=== PATIENT | male | born 1990 | race Hispanic/Latino ===

== ENCOUNTER 2020-03-03 01:03 | Emergency (ER) | payer SELFPAY ==
[~2020-03-03] VITALS: Ht 170.2 cm; Wt 77.1 kg
--- OUTSIDE RECORDS SUMMARY | 2020-03-03 01:06 | XMS REPORT | Clinical Summary ---
Author Author [place] [facility] Address Unknown Phone Unavailable Care Team Providers Care Chief Green Officer Name Role Phone Pcp, No PCP Unavailable Allergies No Known Allergies Medications End Date Status Medication Sig Dispensed Refills Start Date Active albuterol (ACCUNEB) 1.25 Take 1 ampule 0 mg/3 mL nebulizer by solution nebulization every 6 (six) hours as needed for Wheezing. Active albuterol HFA (VENTOLIN Inhale 1 puff 0 HFA) 90 mcg/actuation by mouth via inhaler inhaler every 6 (six) hours as needed for Wheezing. 12/11/2019 fluticasone (FLONASE) 50 1 spray by 15 mL 0 0 mcg/actuation nasal spray Nasal route 9 daily. Active Problems Not on file Social History Date Tobacco Use Types Packs/Day Years Used Never Smoker Smokeless Tobacco: Never Used Alcohol Use Drinks/Week oz/Week Comments No Alcohol Habits Answer Date Recorded How often do you have a drink containing alcohol? Never 12/11/2018 How many drinks containing alcohol do you have on No t asked a typical day when you are drinking? How often do you have six or more drinks on one Not asked occasion? Sex Assigned at Date Recorded Not on file Industry Job Start Date Occupation Not on file Not on file Not on file Travel End Travel History Travel Start No recent travel history available. Last Filed Vital Signs Not on file Plan of Treatment Not on file Results Not on fileafter 03/03/2019
--- OUTSIDE RECORDS SUMMARY | 2020-03-03 01:06 | XMS REPORT | Continuity of Care Document ---
Author Author [facility] t Organization [facility] Address [address] [place] [address] Phone Unavailable Care Team Providers Care Preventive Maintenance Coordinator Name Role Phone Pcp, No PCP Unavailable Problems This patient has no known problems. Allergies, Adverse Reactions, Alerts This patient has no known allergies or adverse reactions. Social History Social Habit Start Date Stop Date Quantity Comments Source History SDOH Alcohol Std Drinks [facility] History SDOH Alcohol Binge [facility] Sex Assigned At [facility] History SDOH Alcohol Frequency 2018-12-11 00:00:00 2018-12-11 00:00:0 0 1 [facility] Smoking Status Start Date Stop Date Source Never smoker [facility] Medications Ordered Medication Name Filled Medication Name Start Date Stop Da te Current Medication? Ordering Clinician Indication Dosage Frequency Signature (SIG) Comments Components Source albuterol (ACCUNEB) 1.25 mg/3 mL nebulizer solution 12-11 18:22:48 Yes 1{ampule} Take 1 ampule by nebulization every 6 (six) hours as needed for Wheezing. [facility] albuterol HFA (VENTOLIN HFA) 90 mcg/actuation inhaler 2018-12-11 18:22:48 Yes 1{puff} Inhale 1 puff b y mouth via inhaler every 6 (six) hours as needed for Wheezing. [facility] fluticasone (FLONASE) 50 mcg/actuation nasal spray 2018-12-11 00:00:00 2019-12-11 23:59:00 No 1{spray} QD 1 spray by Nasal ro acosta daily. [facility] Procedures This patient has no known procedures. Results Test Description Test Time Test Comments Results Result Comments Source RAD, CHEST, 2 VIEWS 2018-12-11 19:07:00 Reason for exam:->COUGH FINAL REPORT Examination: Two view Chest X-ray. CLINICAL HISTORY: Cough COMPARISON:None. The cardiomediastinal and hilar contours are unremarkable. There is no focal consolidation, pleural effusion, pneumothorax or evidence of overt pulmonary edema. There is no acute bony abnormality. IMPRESSION: No acute abnormality. Signed: Magen Sykes MDR[place] Verified Date/Time: 12/11/2018 19:07:02 Reading Location: [address] Reading Room
[2020-03-03] MEDS ORDERED: SODIUM CHLORIDE 0.9% 1000ML 1,000 ML IV STA (01:30)
[2020-03-03] MEDS ORDERED: KETOROLAC TROMETHAMINE 30 MG/ML VIAL IV ONE (01:30)
[2020-03-03] MEDS ORDERED: ONDANSETRON HCL INJ 2MG/ML 2ML 2 MG/ML VIAL IV ONE (01:30)
--- NOTE | 2020-03-03 01:43 | Emergency Department Note ---
History of Present Illnes History of Present Illness Chief Complaint: General Medicine Complaints History of Present Illness This is a 29 year old male [employer] graduate, no significant PMHx c/o back pain now moving to his penis area, urinating with blood. he had similar illness last month but did not see any doctor. Historian: Patient Arrival Mode: Car Radiation: Reports distal Onset quality: gradual Duration (how long): hour(s) Progression: worsening Chronicity: recurrent Relieving factors: none Exacerbating factors: none Treatments prior to arrival: none Past Medical/Family History Physician Review I have reviewed the patient's past medical and family history. Any updates have been documented here. Past Medical History Recent Fever: No Clinical Suspicion of Infectio: No New/Unexplained Change in Ment: No Past Medical History: Asthma Past Surgical History: None Social History Smoking Cessation: Unknown if ever smoked Alcohol Use: None Family History Family history of heart diseas: No Other Last Tetanus: UNK Review of Systems Review of Systems Constitutional: Reports no symptoms EENTM: Reports no symptoms Cardiovascular: Reports no symptoms Respiratory: Reports no symptoms Gastrointestinal: Reports no symptoms Genitourinary: Reports as per HPI, Reports dysuria, Reports hematuria, Reports pain Musculoskeletal: Reports no symptoms Integumentary: Reports no symptoms Neurological: Reports no symptoms Psychological: Reports no symptoms Endocrine: Reports no symptoms Hematological/Lymphatic: Reports no symptoms Physical Exam Related Data Allergies: Coded Allergies: No Known Allergies (Unverified , 03/03/20) Triage Vital Signs Vital Signs Date Time Temp Pulse Resp B/P (MAP) Pulse Ox O2 Delivery O2 Flow Rate FiO2 03/03/20 01:21 97.7 81 18 150/93 99 Physical Exam CONSTITUTIONAL Constitutional: Reports well-developed HENT HENT: Reports normocephalic, Reports atraumatic, Reports oropharynx clear/moist, Reports nose normal HENT L/R: Reports left ext ear normal, Reports right ext ear normal EYES Eyes: Reports PERRL, Reports conjunctivae normal NECK Neck: Reports ROM normal PULMONARY Pulmonary: Reports effort normal, Reports breath sounds normal CARDIOVASCULAR Cardiovascular: Reports regular rhythm, Reports heart sounds normal, Reports capillary refill normal, Reports normal rate GASTROINTESTINAL Abdominal: Reports soft, Reports nontender, Reports bowel sounds normal GENITOURINARY Genitourinary: Reports other (uncricumcised, no oozing no d/c) SKIN Skin: Reports warm, Reports dry MUSCULOSKELETAL Musculoskeletal: Reports ROM normal NEUROLOGICAL Neurological: Reports alert, Reports oriented x 3, Reports no gross motor or sensory deficits PSYCHOLOGICAL Psychological: Reports mood/affect normal, Reports judgement normal Results Laboratory Lab results reviewed: Yes Laboratory comments hematuria c/w kidney stone, no uti Imaging Imaging results reviewed: Yes Assessment & Plan Medical Decision Making [facility] 29 yo male c/o urinary symptoms c/w kidney stone, will do stone work up Assessment & Plan Final Impression: (1) Calculus in bladder (2) Kidney stones Depart Disposition: HOME, SELF-CARE Last Vital Signs Date Time Temp Pulse Resp B/P (MAP) Pulse Ox O2 Delivery O2 Flow Rate FiO2 03/03/20 01:21 97.7 81 18 150/93 99 Home Meds Active Scripts Tamsulosin Hcl* (FLOMAX*) 0.4 Mg Cap, 0.4 MG PO DAILY, #30 CAP Prov:PARMINDER JAY MD 03/03/20 Ondansetron Hcl* (ZOFRAN*) 4 Mg Tablet, 4 MG SL Q6H PRN for NAUSEA, #14 MG 0 Refills Prov:PARMINDER JAY MD 03/03/20 Ibuprofen (IBUPROFEN IB) 200 Mg Tablet, 3 TAB PO Q6H for pain, #90 Prov:PARMINDER JYA MD 03/03/20 Acetaminophen With Codeine (TYLENOL WITH CODEINE #3 TABLET) 1 Each Tablet, 300 MG PO Q6H, #30 TAB Prov:PARMINDER JAY MD 03/03/20 Medications in the ED Ketorolac Tromethamine 30 mg ONCE ONCE IV ; Start 03/03/20 at 01:30; Stop 03/03/20 at 01:31; Status UNV Ondansetron HCl 4 mg ONCE ONCE IV ; Start 03/03/20 at 01:30; Stop 03/03/20 at 01:31; Status UNV Sodium Chloride 1,000 ml @ 0 mls/hr Q0M STAT IV ; Start 03/03/20 at 01:30; Stop 03/03/20 at 01:36; Status DC Physician Attestation Provider Attestation pt is taking PO well, will d/c on oral meds and f/u with urologist PARMINDER JAY MD Mar 03, 2020 01:43
[2020-03-03] MEDS ORDERED: KETOROLAC TROMETHAMINE 30 MG/ML VIAL ONE (01:53)
[2020-03-03] MEDS ORDERED: SODIUM CHLORIDE 0.9% 1000ML 1,000 ML ONE (01:53)
[2020-03-03] MEDS ORDERED: ZOFRAN4 MG SL (02:00)
[2020-03-03] MEDS ORDERED: TYLENOL WITH C1 EACH PO (02:00)
[2020-03-03] MEDS ORDERED: IBUPROFEN IB200 MG PO (02:00)
[2020-03-03] MEDS ORDERED: FLOMAX0.4 MG PO (02:07)
--- NOTE | 2020-03-03 02:29 | Diagnostic Imaging Report ---
EXAM: CT Abdomen and Pelvis WITHOUT contrast INDICATION: ^hematuria, look for stone ^[id number] ^[id number] COMPARISON: None. TECHNIQUE: Abdomen and pelvis were scanned utilizing a multidetector helical scanner from the lung base to the pubic symphysis without administration of IV contrast. Absence of intravenous contrast decreases sensitivity for detection of focal lesions and vascular pathology. Coronal and sagittal reformations were obtained. Routine protocol was performed. IV CONTRAST: None ORAL CONTRAST: None. COMPLICATIONS: None RADIATION DOSE: Total DLP: 931.31 mGy*cm Estimated effective dose: (DLP x 0.015 x size factor) mSv CTDIvol has been reviewed. It is below the limits set by the Radiation Protocol Committee (RPC). FINDINGS: LINES and TUBES: None. LOWER THORAX: Unremarkable HEPATOBILIARY: Unenhanced liver is unremarkable. No biliary ductal dilation. GALLBLADDER: Contracted. No radio-opaque stones or sludge. No wall thickening. SPLEEN: No splenomegaly. PANCREAS: No focal masses or ductal dilatation. ADRENALS: No adrenal nodules KIDNEYS/URETERS: 6 mm left ureterovesical junction calculus with mild left hydroureteronephrosis. Limited for evaluation of renal parenchyma without intravenous contrast. Right kidney is unremarkable. No right renal stone or hydronephrosis. GI TRACT: No abnormal distention, wall thickening, or evidence of bowel obstruction. Appendix is normal. PELVIC ORGANS/BLADDER: Unremarkable. LYMPH NODES: No lymphadenopathy. VESSELS: Unremarkable. PERITONEUM / RETROPERITONEUM: No free air or fluid. BONES: Unremarkable. SOFT TISSUES: Unremarkable. IMPRESSION: 6 mm obstructive left ureterovesical junction calculus with mild left hydroureteronephrosis. Signed by: Dr. Varun Kingston MD on 03/03/2020 2:26 AM
== END 2020-03-03 03:00 | disposition home or self-care (01) ==
LOC: FSED 01:03
DX: R10.2 Pelvic and perineal pain (principal); R31.9 Hematuria, unspecified; N20.0 Calculus of kidney; N21.0 Calculus in bladder; J45.909 Unspecified asthma, uncomplicated
CPT/HCPCS: 74176; 80053; 81003; 85025; 99284; J1885; J7030